=== PATIENT | male | born 1950 | race Caucasian/White ===

== ENCOUNTER 2020-07-06 08:09 | Inpatient (IN) | payer MEDICARE, SELFPAY ==
[2020-07-06] VITALS (16 sets, daily range): BP systolic 132–159; BP diastolic 74–103; PULSE 70–148; RESP 16–20; TEMP 35.9–36.6; O2SAT 97–100; BMI 19.1
--- NOTE | ~2020-07-06 | US_ITS ---
EXAMINATION: US venous doppler [facility] DATE: 07/07/2020 09:57 INDICATION: Shortness of breath. Elevated d-dimer. TECHNIQUE: Grayscale ultrasound images without and with compression and Doppler ultrasound images of the bilateral lower extremity veins were obtained. COMPARISON: None. FINDINGS: The visualized portions of right common femoral vein, profunda (deep) femoral vein, femoral vein, pop liteal vein, posterior tibial veins, peroneal veins, gastrocnemius vein and greater saphenous vein ou tflow are patent. The visualized portions of left common femoral vein, profunda femoral vein, femoral vein, popliteal v ein, posterior tibial veins, peroneal veins, gastrocnemius vein and greater saphenous vein outflow ar e patent. IMPRESSION: 1. No deep venous thrombosis in either lower limb. Reviewed, dictated and finalized at location B. HEALTH CLINICAL SUPERVISOR
--- NOTE | ~2020-07-06 | XR_ITS ---
EXAMINATION: XR chest 1V portable EXAM DATE: 07/06/2020 09:51 INDICATION: Shortness of breath. TECHNIQUE: Portable AP frontal chest x-ray was obtained. There is no prior study for comparison. FINDINGS: There is cardiomegaly. There is moderate chronic hyperinflation. No confluent consolidation , pneumothorax or pleural effusion suspected. There are mild bony degenerative changes. IMPRESSION: 1. Cardiomegaly. 2. Hyperinflation. Reviewed, dictated and finalized at location A. TRIC CUTTER OPERATOR
--- NOTE | ~2020-07-06 | CT_ITS ---
EXAMINATION: CTA chest PE protocol DATE: 07/06/2020 11:43 INDICATION: Shortness of breath. Elevated d-dimer. TECHNIQUE: Computed tomography (CT) pulmonary angiogram of the chest was performed with 100 mL Omnipa que-350 intravenous contrast. Additional 3D reconstructions utilizing coronal maximum intensity proje ction (MIP) were performed. Automated exposure control and iterative reconstruction technique were em ployed. The dose-length product was 202.30 mGy-cm. COMPARISON: None FINDINGS: Excellent contrast opacification of the pulmonary arteries. There is mild streak artifact from dense contrast in the superior vena cava and right atrium. Mild scattered respiratory motion artifact which does not significantly limit evaluation. No pulmonary embolism mild discoid atelectasis in the bilat eral lower lobes. There are multiple scattered small pulmonary nodules, the largest a 5 mm subpleural right lower lobe nodule along the dome of the right hemidiaphragm. No pneumonia, pulmonary edema or pleural effusion. Mild cardiomegaly. No pericardial effusion. Prominent aortic valve calcification. F usiform ascending thoracic aortic aneurysm measuring up to 4.5 cm in maximal diameter. There is enlar gement of the main pulmonary artery and left and right main pulmonary arteries consistent with pulmon huy arterial hypertension. No pathologically enlarged thoracic lymphadenopathy. 2.4 cm low-attenuatio n right renal cyst. Small diverticulum at the fundus of the stomach. Mild to moderate thoracic spondy losis. IMPRESSION: 1. No pulmonary embolism or other acute cardiopulmonary disease. 2. Cardiomegaly. 3. 4.5 cm fusiform ascending thoracic aortic aneurysm. 4. Enlargement of the central pulmonary arteries consistent with pulmonary arterial hypertension. 5. A few scattered small bilateral pulmonary nodules measuring up to 5 mm. If the patient is low risk for lung cancer, no follow-up is needed. If the patient is high risk (i.e., history of smoking or as bestos or significant radiation exposure), optional follow-up low-dose noncontrast chest CT could be considered at 12 months. Reviewed, dictated and finalized at location B. TENANCE DATA ANALYST IMPRESSION: 1. No pulmonary embolism or other acute cardiopulmonary disease. 2. Cardiomegaly. 3. 4.5 cm fusiform ascending thoracic aortic aneurysm. 4. Enlargement of the central pulmonary arteries consistent with pulmonary temitope rial hypertension. 5. A few scattered small bilateral pulmonary nodules measuring up to 5 mm. If t he patient is low risk for lung cancer, no follow-up is needed. If the patient is high risk (i.e., history of smoking or asbestos or significant radiation exp osure), optional follow-up low-dose noncontrast chest CT could be considered at 12 months.
--- NOTE | 2020-07-06 09:04 | ECG_ITS ---
Measurements Intervals [place] Rate: 120 P: GA: 0 QRS: 67 QRSD: 126 T: -48 QT: 346 QTc: 490 Interpretive Statements ATRIAL FIBRILLATION WITH RAPID VENTRICULAR RESPONSE RIGHT BUNDLE BRANCH BLOCK LEFT VENTRICULAR HYPERTROPHY WITH ST-T CHANGE BORDERLINE ST-T WAVE ABNORMALITY- INF/LAT LEADS BASELINE ARTIFACT- I, III, AVR, AVL, AVF, V4-V6 ABNORMAL ECG Electronically Signed On 07-06-2020 11:18:42 CHOPPER OPERATOR by Salvatore Esteban D.O.
--- NOTE | 2020-07-06 09:23 | ED.DIZZY ---
HPI - Dizziness General Chief Complaint: Dizziness Stated Complaint: high blood pressure, dizziniess Time Seen by Provider: 07/06/20 08:41 Source: patient Mode of arrival: ambulatory Limitations: no limitations History of Present Illness HPI Narrative: This is a 69 year old male who presents for evaluation of dizziness . He noticed 2 days ago he was lightheaded all the time. He also reports shortness of breath with exertion. He was noticed to be tachycardic on the case monitor. He denies history of atrial fibrillation or an arrhythmia, but he states 2 years ago it was recommended that he get a valve replacement. He is unsure of which valve. He has noticed his heart has been beating irregularly for 2 days. He denies leg swelling, chest pain, cough, headache, fever, chills or focal deficits. MD elicited complaint: lightheadedness Related Data Home Medications Medication Instructions Recorded Confirmed No Home Medications 07/06/20 07/06/20 Allergies Allergy/AdvReac Type Severity Reaction Status Date / Time No Known Allergies Allergy Unverified 11/06/18 12:05 Review of Systems Review of Systems: All systems reviewed & are unremarkable except as noted in HPI and below Constitutional: Constitutional: Denies chills and Denies fever(s) Cardiovascular: Cardiovascular: Denies chest pain and Reports palpitations Respiratory: Respiratory: Denies cough and Reports dyspnea Gastrointestinal: Gastrointestinal: Denies abdominal pain, Denies nausea and Denies vomiting Neurologic: Denies vertigo, Reports dizziness and Denies focal weakness PMFSH Past Medical History Medical History (Updated 07/06/20 @ 17:37 by Sommer Cade NP) Heart valve disease Retinal tear right eye Surgical History Surgical History (Updated 07/06/20 @ 17:35 by Sommer Cade NP) H/O cataract extraction left eye H/O hand surgery left hand H/O hernia repair Family History Family History Father Cancer Mother Brain aneurysm Social History Social History (Updated 07/06/20 @ 17:40 by Sommer Cade NP) Social History: his sister's lives with him. He is for a long time now he says. He is a lifelong nonsmoker. He does not use any alcohol , marijuana, or illicit drugs. the patient does not have a durable power patent prosecution attorney. He stated if he had have surgery he would be a full code and allow intubation. Otherwise the patient stated that he would allow CPR and would not want to be on a ventilator. 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 The patient has 2 children. 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 Chest: Chest palpation & inspection: normal inspection of the chest Resp: Effort & Inspection: normal respiratory effort and no retractions Auscultation: clear to auscultation bilaterally Cardio: Rate: tachycardic Rhythm: abnormal rhythm Heart sounds: Murmur heart sound present GI: GI Palp: Yes Soft to palpation, No Tenderness to palpation present (GI) and No Guarding due to palpation present (GI) Auscultation: normal bowel sounds Skin: General skin exam: normal color Rashes: no rashes Neuro: General: patient oriented x3 and moves all extremities Other: bilateral hand tremors Extrem: General: no pedal edema Psych: Mental Status: mental status grossly normal Affect: normal affect Course Consultations Consultation #1: I discussed case with Dr. Hennessy who accepts patient to hospitalist service. Agrees with management. No further questions Date: 07/06/20 Time: 10:01 Con
[2020-07-06 09:34] LABS: Basophils Percent Auto 0.5 % (0.2-1.2); Eosinophils Absolute Auto 0.1 K/mm3 (0-0.3); Eosinophils Percent Auto 0.9 % (0-4.4); Hemoglobin 13.5 g/dL (14.0-18.0); Immature Granulocyte Absolute 0.01 K/mm3 (0.00-0.031); Immature Granulocyte Percent A 0.2 % (0-0.5); Lymphocytes Absolute Auto 1.11 K/mm3 (0.9-3.2); Lymphocytes Percent Auto 19.5 % (18.3-44.2); Mean Corpuscular HGB Conc 33.8 g/dl (32-36); Mean Corpuscular Hemoglobin 30.1 pg (26-34); Mean Corpuscular Volume 89.1 fl (80-100); Mean Platelet Volume 9.4 fl (7.4-10.4); Monocytes Absolute Auto 0.5 K/mm3 (0.1-0.6); Monocytes Percent Auto 8.4 % (2.6-8.5); Neutrophils Percent Auto 70.5 % (45.5-73.1); Platelet Count Result 278 k/mm3 (150-375); Red Blood Count 4.49 M/mm3 (4.6-6.20); Red Cell Distribution Width 12.7 % (11.5-14.5); White Blood Count 5.7 K/mm3 (4.5-10.0)
[2020-07-06 09:47] LABS: Alanine Aminotransferase 15 U/L (4-50); Albumin Level 4.1 g/dL (3.5-5.1); Alkaline Phosphatase 62 U/L (38-126); Anion Gap 8 mmol/L (8-16); Aspartate Amino Transferase 32 U/L (17-59); Bilirubin,Total 0.5 mg/dL (0.2-1.3); Blood Urea Nitrogen 9 mg/dL (9-20); Calcium 9.3 mg/dL (8.4-10.2); Carbon Dioxide 27 mmol/L (22-30); Chloride 107 mmol/L (98-107); Estimated CRCL calculation 65 ml/min; Estimated Glomerular Filt Rate > 60; Glucose 128 mg/dL (75-110); Lactic Acid Reflex 2.1 mmol/L (0.7-2.1); Magnesium 1.8 mg/dL (1.6-2.3); Potassium 3.6 mmol/L (3.4-5.0); Sodium 142 mmol/L (137-145)
[2020-07-06 09:51] LABS: Prothrombin Time 13.7 Seconds (11.1-14.7)
[2020-07-06 09:52] LABS: Partial Thromboplastin Time 27.2 SECONDS (22.3-36.8)
[2020-07-06 09:59] LABS: NT Pro B Type Natriuretic Pept 2800 PG/ML (5-100)
[2020-07-06] MEDS: dilTIAZem HCl INJ 25 MG/5 ML VIAL 10 MG IV PUSH (10:20)
[2020-07-06] MEDS: ENOXAPARIN 80 MG/0.8 ML SYRINGE 70 MG SUB-Q (11:29)
[2020-07-06 12:25] LABS: Add Urine Microscopic? NO; Appearance Urine Clear (Clear); Bilirubin Urine Negative (Negative); Blood Urine Negative (Negative); Color Urine Straw (Yellow); Glucose Urine UA Negative (Negative); Ketones Urine Negative (Negative); Leukocyte Esterase Ur Negative LEU/UL (Negative); Nitrate Urine Negative (Negative); Protein Urine Negative (Negative); Specific Grav Ur 1.011 (1.001-1.035); Urobilinogen Urine Negative mg/dL (<2.0)
[2020-07-06 12:31] LABS: Reflex Lactic Acid Yes or No Add Lactic
[2020-07-06] MEDS: ASPIRIN 81 MG CHEWABLE TABLET 324 MG PO (13:05)
--- NOTE | 2020-07-06 13:55 | PC.NURSE ---
PT PLACED INTO BED 210. IMU PERSONNEL X4 MADE AWARE OF PT'S ARRIVAL AND THE NEED FOR HIM TO BE ADMITTED TO THEIR TELEMETRY FOR MONITORING.
--- NOTE | 2020-07-06 14:34 | ADMGEN ---
This patient, Alo Hutchins, was admitted to IMU Room 210-01. Patient/family oriented to hospital policies and general routines including ID bracelet, bed and alarms, visiting hours, pain management, procedures, bathroom and other care routines, personal items, smoking policy, room service/diet, and visiting hours. Information on how to activate the Rapid Response Team has been discussed. Patient/Family are encouraged to report perceived risks to care and to ask questions if they do not understand what they are told or what they should do.
--- NOTE | 2020-07-06 15:15 | PM.CNCAR ---
Assessment and Plan Assessment and plan (1) Thoracic aortic aneurysm: Code(s): I71.2 - Thoracic aortic aneurysm, without rupture Status: Acute Assessment and Plan: Patient is a 69-year-old white man with history of valvular heart disease who is seen in cardiac consultation for new onset atrial fibrillation with rapid ventricular response. -CTA of the chest demonstrated no evidence of pulmonary embolism but did demonstrate a 4.5 cm fusiform ascending thoracic aortic aneurysm as well as evidence of pulmonary arterial hypertension. -Obtain records from [facility] regarding prior chest CT scans and prior echocardiograms. -He needs outpatient CT surgery follow-up and serial imaging. -Monitor and improve blood pressure control. -Added metoprolol tartrate 25 mg b.i.d. to improve blood pressure and heart rate control in the setting of his thoracic aortic aneurysm. -obtain fasting lipid panel and need to keep LDL less than 70. Anticipate addition of statin. (2) Atrial fibrillation with rapid ventricular response: Code(s): I48.91 - Unspecified atrial fibrillation Status: Acute Assessment and Plan: - he had new onset atrial fibrillation with rapid ventricular response in the setting of valvular heart disease and CT evidence of pulmonary hypertension. - continue therapeutic Lovenox pending echo results regarding his valvular disease and left ventricular systolic function. - given his advanced age and congestive heart failure based on exertional symptoms with evidence of pulmonary hypertension on CT imaging, with possible previously undiagnosed hypertension, he would likely benefit from oral anticoagulation as an outpatient. - given elevated D-dimer, lower extremity venous Doppler ordered, pending. - CTA of the chest demonstrated no evidence of pulmonary embolism but did demonstrate a 4.5 cm fusiform ascending thoracic aortic aneurysm as well as evidence of pulmonary arterial hypertension. - he had normal TSH. - repleting magnesium and potassium as needed. - continue intravenous diltiazem infusion for rate control, currently 10 milligrams/hour. - added metoprolol tartrate 25 mg b.i.d. given his thoracic aortic aneurysm, need for improved rate control, and mildly elevated blood pressure on presentation. (3) NSTEMI (non-ST elevated myocardial infarction): Code(s): I21.4 - Non-ST elevation (NSTEMI) myocardial infarction Status: Acute Assessment and Plan: -In the setting of atrial fibrillation with rapid ventricular response, he had possible non ST elevation myocardial infarction with minimally elevated flat troponin I trend. -Troponin I was minimally elevated at 0.60, then 0.050, then 0.055, with a flat trend. - EKG without evidence of acute injury, and he reports atypical mild ongoing chest discomfort. - continue aspirin. - Continue therapeutic Lovenox for new onset atrial fibrillation and possible non ST elevation myocardial infarction. - obtain fasting lipid panel, and anticipate probable addition of statin given his thoracic aortic aneurysm. - obtain echo to evaluate cardiac structure and function, including valvular heart disease. - Pending stabilization of his heart rate, the patient would benefit from Lexiscan nuclear stress testing to evaluate for ischemia. (4) Heart valve disease: Code(s): I38 - Endocarditis, valve unspecified Status: Chronic Assessment and Plan: - Patient was told that he needed a valve replaced approximately 2 years ago at [facility], but he did not have it replaced since he was not short of breath at that time and his insurance was not compatible with [facility]. -obtain echo to evaluate cardiac structure and function, including underlying valvular disease. -Obtain records from [facility] regarding prior chest CT scans and prior echocardiograms, as well as prior cardiac consultations. History of Present Ill
[2020-07-06 15:36] LABS: Lactic Acid 1.2 mmol/L (0.7-2.1)
[2020-07-06 16:00] LABS: Troponin I 0.055 ng/mL (0.000-0.034)
--- NOTE | 2020-07-06 17:13 | PM.IMHP ---
H&P: HPI History of Present Illness Date/Time: 07/06/20 17:13 Chief Complaint: short of breath Narrative: Alo Hutchins is a 69 year old male who does not take any home medication. The patient stated that he did have a heart valve that needed to be replaced approximately 2 years ago. He stated that he was not short of breath so he decided that he needed to leave the heart valve alone. 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 However over the weekend when he was cutting wood he became more short of breath over the weekend when he was cutting wood. He cut wood on Monday and Monday and had to stop on Monday due to the shortness of breath. The patient rested on Monday. The patient has been feeling lightheaded Since the weekend. He denies any history of atrial fibrillation. He stated that he noticed that his blood pressure was high last night but he did not notice if his pulse rate was high. The patient stated that he saw vegetable picker at [facility] approximately 2 years ago but does not see a doctor on a regular basis. He said that he felt fine and did need to see a doctor. He denies any fever chills. No cough. No complaints of swelling. Cardiology has been consulted as the patient was in AFib with RVR. Patient's Jose Vasc score is only 1. Patient had a CT which was read as no pulmonary embolism or acute coronary pulmonary disease. Cardiomegaly. 4.5 cm fusiform ascending thoracic aortic aneurysm. A few scattered small bilateral pulmonary nodules measuring up to [address] is recommended and 12 months. Chest x-ray was read as cardiomegaly and hyperinflation. The patient was placed on a Cardizem drip and given up a aspirin. Troponin was 0.060, 0.050, and 0.055. BNP is 2800. TSH was normal. Magnesium 1.8. EKG was read as AFib with rapid ventricular response heart rate in the 120s. Patient is being admitted observation on the date of service of 07/06/2020 Review of Systems Review of Systems: All systems reviewed & are unremarkable except as noted in HPI and below Constitutional: Constitutional: Reports as per HPI and Reports no additional constitutional complaints Eyes: Eyes: Reports as per HPI and Reports no additional eye complaints ENT: Reports system reviewed and no additional complaints, except as documented and Reports Normal hearing present Cardiovascular: Cardiovascular: Reports no additional cardiovascular complaints Respiratory: Respiratory: Reports no additional respiratory complaints and Reports no additional respiratory complaints Gastrointestinal: Gastrointestinal: Reports as per HPI and Reports no additional gastrointestinal complaints Musculoskeletal: Musculoskeletal: Reports no additional musculoskeletal complaints Integumentary/Breasts: Skin/Breast: Reports system reviewed and no additional complaints, except as docu and Reports as per HPI Neurologic: Reports system reviewed and no additional complaints, except as documented, Reports as per HPI and Reports Normal hearing present Psychiatric: Psychiatric: Reports no additional psychiatric complaints and Reports as per HPI Endocrine: Endocrine: Reports no additional endocrine complaints Hematologic/Lymphatic: Hematologic/Lymphatic: Reports no additional hematologic/lymphatic complaints Allergic/Immunologic: Allergic/Immunologic: Reports no additional allergic/immunologic complaints [facility] Past Medical History Medical History (Updated 07/06/20 @ 17:37 by Sommer Cade NP) Heart valve disease Retinal tear right eye Surgical History Surgical History (Updated 07/06/20 @ 17:35 by Sommer Cade NP) H/O cataract extraction left eye H/O hand surgery left hand H/O hernia repair Family History Family History Father Cancer Mother Brain aneurysm Social History Social History (Updated 07/06/20 @ 17:40 by Sommer Cade NP) Social History: his sister's l
[2020-07-06] MEDS: ENOXAPARIN 60 MG/0.6 ML SYRINGE SUB-Q (19:55)
[2020-07-06] MEDS: POTASSIUM CHLORIDE 20 MEQ TABLET 40 MEQ PO (21:12)
[2020-07-06] MEDS: MAGNESIUM OXIDE 400 MG TABLET PO (21:12)
[2020-07-06] MEDS: METOPROLOL TARTRATE 25 MG TABLET PO (21:13)
[2020-07-07] VITALS (19 sets, daily range): BP systolic 114–141; BP diastolic 65–86; PULSE 60–102; RESP 16–20; TEMP 36.2–36.7; O2SAT 97–100
[2020-07-07 05:11] LABS: Basophils Percent Auto 0.6 % (0.2-1.2); Eosinophils Absolute Auto 0.1 K/mm3 (0-0.3); Hematocrit 39.8 % (42.0-52.0); Hemoglobin 13.2 g/dL (14.0-18.0); Immature Granulocyte Absolute 0.01 K/mm3 (0.00-0.031); Immature Granulocyte Percent A 0.2 % (0-0.5); Lymphocytes Percent Auto 29.5 % (18.3-44.2); Mean Corpuscular HGB Conc 33.2 g/dl (32-36); Mean Corpuscular Hemoglobin 30.4 pg (26-34); Mean Corpuscular Volume 91.7 fl (80-100); Mean Platelet Volume 8.9 fl (7.4-10.4); Monocytes Absolute Auto 0.5 K/mm3 (0.1-0.6); Monocytes Percent Auto 9.9 % (2.6-8.5); Neutrophils Absolute Auto 2.7 K/mm3 (1.3-6.7); Neutrophils Percent Auto 56.8 % (45.5-73.1); Platelet Count Result 284 k/mm3 (150-375); Red Blood Count 4.34 M/mm3 (4.6-6.20); Red Cell Distribution Width 12.7 % (11.5-14.5); White Blood Count 4.7 K/mm3 (4.5-10.0)
[2020-07-07 05:26] LABS: Alanine Aminotransferase 12 U/L (4-50); Albumin Level 3.7 g/dL (3.5-5.1); Alkaline Phosphatase 61 U/L (38-126); Anion Gap 3 mmol/L (8-16); Aspartate Amino Transferase 24 U/L (17-59); Bilirubin,Total 0.5 mg/dL (0.2-1.3); Blood Urea Nitrogen 12 mg/dL (9-20); Calcium 9.2 mg/dL (8.4-10.2); Carbon Dioxide 34 mmol/L (22-30); Chloride 106 mmol/L (98-107); Cholesterol 182 mg/dL (0-200); Estimated CRCL calculation 49 ml/min; Estimated Glomerular Filt Rate > 60; Glucose 105 mg/dL (75-110); HDL Direct 40 mg/dL; Potassium 4.5 mmol/L (3.4-5.0); Sodium 143 mmol/L (137-145); Triglycerides 75 mg/dL (<150)
[2020-07-07 05:36] LABS: LDL Cholesterol Direct 115 mg/dL
--- NOTE | 2020-07-07 06:00 | ECHO_ITS ---
Patient Info Name: Alo Hutchins Age: 69 years : 1950 Gender: Male Ht: 71 in Wt: 136 lbs BSA: 1.75 m2 HR: 72 bpm BP: 115 / 74 mmHg Technical Quality: Good Exam Date: 07/07/2020 10:48 AM Exam Location: [facility] Patient Status: Inpatient Admit Date: 07/07/2020 Staff Ordering Physician: Ruthie Singh MD Tassel Snipper: Lizzeth Fernandes RDCS Attending Provider: Beba Hennessy MD Referring Physician: Francisco LILLY; Exam Type: CA echo doppler color flow Study Info Indications I48.1 - Persistent atrial fibrillation Complete two-dimentional, color flow and Doppler transthoracic echocardiogram is performed with agitated saline and with contrast to opacify the left ventricle and to improve the delineation of the left ventricle endocardial borders. Summary 1. There is moderately increased left ventricular wall thickness. 2. Left ventricular systolic function is low normal, ejection fraction estimated at \R\50%. 3. The left ventricular diastolic function is indeterminate due to underlying Atrial fibrillation. 4. Right ventricular chamber dimension is mildly enlarged with low normal to mildly reduced RV systolic function. . 5. Aortic valve is heavily calcified. Appears likely trileaflet. There is moderate to severe aortic valve stenosis. Aortic valve peak velocity is 3.5, Mean gradient 35 mmHg, aortic valve area 0.8 cm2. 6. There is mild aortic valve regurgitation. 7. There is mild mitral valve regurgitation. 8. There is mild tricuspid valve regurgitation. 9. The aortic root size at the sinus of Valsalva is mildly dilated 4.4 cm. 10. Inferior vena cava is dilated with <50% collapse upon inspiration. 11. There is no pericardial effusion. Left Ventricle Left ventricular chamber dimension is normal. Left ventricular systolic function is low normal, ejection fraction estimated at \R\50%. There is moderately increased left ventricular wall thickness. Left ventricular septal wall motion is normal. The left ventricular diastolic function is indeterminate due to underlying Atrial fibrillation. Right Ventricle Right ventricular chamber dimension is mildly enlarged with low normal to mildly reduced RV systolic function. . Left Atria Left atrial chamber dimension is normal. Right Atria Right atrial chamber dimension is normal. Aortic Valve Aortic valve is heavily calcified. Appears likely trileaflet. There is moderate to severe aortic valve stenosis. Aortic valve peak velocity is 3.5, Mean gradient 35 mmHg, aortic valve area 0.8 cm2. There is mild aortic valve regurgitation. Pulmonic Valve The pulmonic valve is normal. There is no pulmonic valve stenosis. There is no pulmonic regurgitation. Mitral Valve The mitral valve has normal leaflets. There is no mitral valve stenosis. There is mild mitral valve regurgitation. Tricuspid Valve The tricuspid valve leaflets are normal. There is no significant tricuspid valve stenosis. There is mild tricuspid valve regurgitation. Mild pulmonary hypertension, estimated pulmonary arterial systolic pressure is 45 mmHg. Pericardium/Pleural The pericardium appears normal. There is no pericardial effusion. Inferior Vena Cava Inferior vena cava is dilated with <50% collapse upon inspiration. Aorta The aortic root size at the sinus of Valsalva is mildly dilated 4.4 cm. Left Ventricular Outflow Tract Name
[2020-07-07] MEDS: MAGNESIUM OXIDE 400 MG TABLET PO (08:15)
[2020-07-07] MEDS: METOPROLOL TARTRATE 25 MG TABLET PO ×2 (08:15→21:30)
[2020-07-07] MEDS: ASPIRIN 81 MG ENTERIC TABLET PO (08:15)
[2020-07-07] MEDS: ENOXAPARIN 60 MG/0.6 ML SYRINGE SUB-Q (08:16)
--- NOTE | 2020-07-07 10:16 | PM.PNCARD ---
Progress Note: A&P Assessment and Plan (1) Heart valve disease: Code(s): I38 - Endocarditis, valve unspecified Status: Chronic Assessment and Plan: - 69-year-old white man with history of aortic stenosis who is seen in cardiac consultation for new onset atrial fibrillation with rapid ventricular response. He was seen by Dr King at [facility] 2 years ago and had moderate to severe aortic stenosis at that time. Lost to follow up since Now he is symptomatic and developed new onset A fib, CHF and pulmonary HTN 2D echo has not been completed yet. Will follow He has mild trop elevation. No chest pain or ischemic changes on EKG. Likely type II [place] from increased demand from underlying A fib and heart failure. Regardless he will need LHC at some point prior to any potential intervention on aortic valve. Way may do during this hospitalization. He will eventually need likely SAVR (rather than TAVR) given ascending aortic aneurysm. . (2) Atrial fibrillation with rapid ventricular response: Code(s): I48.91 - Unspecified atrial fibrillation Status: Acute Assessment and Plan: -Rate better controlled Will D/C Cadizem drip Continue PO [id number] he had normal TSH. Repleting magnesium and potassium as needed CTA of the chest demonstrated no evidence of pulmonary embolism but did demonstrate a 4.5 cm fusiform ascending thoracic aortic aneurysm as well as evidence of pulmonary arterial hypertension. . (3) Thoracic aortic aneurysm: Code(s): I71.2 - Thoracic aortic aneurysm, without rupture Status: Acute Assessment and Plan: 4.5 cm fusiform ascending thoracic aortic aneurysm (4) NSTEMI (non-ST elevated myocardial infarction): Code(s): I21.4 - Non-ST elevation (NSTEMI) myocardial infarction Status: Acute Assessment and Plan: -Likely type II from increased demand Will follow 2D echo Will need LHC , possibly this admission for NSTMI and for potential intervention on aortic valve . Subjective Date/time seen: 07/07/20 10:16 He feels much better. SOB resolved. Denies chest pain. Review of Systems Review of Systems: All systems reviewed & are unremarkable except as noted in HPI and below Exam Narrative: Exam Narrative: Const: General: cooperative, healthy appearing, comfortable, no acute distress, well developed, alert, awake and Physically active Nutritional Appearance: average body habitus and well nourished Orientation/consciousness: oriented to person, oriented to place, oriented to time and patient oriented x3 Limitations: no limitations HENMT: Head: normal to inspection, No palpable skull fracture present, normocephalic and atraumatic Ears: hearing grossly normal bilaterally and external ears normal General nose exam: Normal external nose present, Normal nares present and No nasal polyps present Eyes: General: appearance normal, both eyes and all related structures Alignment and Position: alignment normal Periorbital: periorbital findings normal Eyelids: eyelids normal Conjunctivae: conjunctivae normal Sclera: sclerae normal Cornea: corneas normal Pupils: Equal, round and reactive pupils present and Pupil accommodation reflex normal EOM: EOMs intact bilaterally Neck: Neck: normal visual inspection, full ROM, no lymphadenopathy, trachea midline and supple Thyroid: thyroid normal Carotids: normal carotid upstroke Lymphatic: no lymphadenopathy noted Chest: Chest palpation & inspection: normal inspection of the chest Resp: Effort & Inspection: normal respiratory effort Auscultation: clear to auscultation bilaterally Percussion: percussion normal Cardio: Palpation: normal PMI Irregularly irregular rhythm: abnormal rhythm Heart sounds: S1 normal heart sound present and S2 normal heart sound present, with 2/6 intensity systolic murmur right upper sternal border and 2/6 intensity systolic murmur at the LLSB/apex, Peripheral pulses: Periphe
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
[2020-07-08] VITALS (24 sets, daily range): BP systolic 98–145; BP diastolic 56–89; PULSE 70–159; RESP 18–20; TEMP 35.6–36.6; O2SAT 93–99
--- NOTE | 2020-07-08 04:24 | PC.NURSE ---
patients heart rate increases into the 150's with activity.
[2020-07-08] MEDS: METOPROLOL TARTRATE 25 MG TABLET PO ×2 (07:46→20:54)
[2020-07-08] MEDS: ASPIRIN 81 MG ENTERIC TABLET PO (07:46)
[2020-07-08] MEDS: MAGNESIUM OXIDE 400 MG TABLET PO (07:46)
--- NOTE | 2020-07-08 09:20 | PM.IMPN ---
Progress Note: A&P Assessment and Plan (1) Atrial fibrillation with rapid ventricular response: Code(s): I48.91 - Unspecified atrial fibrillation Status: Acute Assessment and Plan: Patient presents with shortness of breath and found to have atrial fibrillation with RVR. TSH normal. Echo as mentioned below. [id number] score is 1 due to his age. He was started on Cardizem drip and oral Lopressor was added. Lovenox started. Able to come off the diltiazem and HR remained stable inititally but has increased overnight. BP soft so Digoxin added. Appreciated Cardiology input. (2) Elevated d-dimer: Code(s): R79.89 - Other specified abnormal findings of blood chemistry Status: Acute Assessment and Plan: CTA was negative. LE venous Dopplers negative as well. Currently on Lovenox (3) Aortic stenosis: Qualifiers: Cardiac valve disease etiology: etiology unspecified Qualified Code(s): I35.0 - Nonrheumatic aortic (valve) stenosis Code(s): I35.0 - Nonrheumatic aortic (valve) stenosis Status: Acute Assessment and Plan: Echo showing moderate-severe with MAYA 0.8cm2. EF 50% probably related to the valvular disease. Cardiology planning LHC later today or tomorrow in preparation for Aortic valve repair. Discussed with cardiology and stated that the aneurysm may be repaired at the same time. (4) Elevated troponin: Code(s): R77.8 - Other specified abnormalities of plasma proteins Status: Acute Assessment and Plan: Trop at 0.06 on admission and has trended down on repeat. EKG showing borderline ST-T wave changes. Echo showing no focal wall motion abnormalities. [place] Type II OR from stress response related to the AFib RVR. LHC planned. (5) Pulmonary nodule: Code(s): R91.1 - Solitary pulmonary nodule Status: Acute Assessment and Plan: CT scan showing a few scattered small bilateral pulmonary nodules measuring up to 5 mm. He is a nonsmoker and has no exposure to asbestos. Since patient is low risk for lung cancer, no follow-up is needed. (6) Thoracic aortic aneurysm: Code(s): I71.2 - Thoracic aortic aneurysm, without rupture Status: Acute Assessment and Plan: CT scan showing 4.5 cm fusiform ascending thoracic aortic aneurysm. Will need follow up but will defer to Cardiology since the patient will be following up for valve surgery. Subjective Date/time seen: 07/08/20 09:20 Interval history: Date of service 07/08 69-year-old male with known valvular disease here for shortness of breath and found to be in atrial fibrillation. Patient feels well. Slept well last night. Feels cold in the room. no CP, SOB. No palpitations. Exam Narrative: Exam Narrative: AF 96.7 98/67 115 20 99% ra Gen - NARD Chest - CTA bilaterally, nml RR CV -irregularly irregular with 2/6 systolic murmur RUSB. S1-S2. Tele showing persistent AFib with increasing HR overnight Abd - Soft, NT/ND, Positive BS Ext - No pedal edema Neuro - Alert and oriented. Nonfocal exam. Psych - Nml mood and affect Skin - Warm and dry Objective Data Vital Signs Vital Signs: Vital Signs - 24 hr 07/07/20 10:00 07/07/20 12:00 07/07/20 12:12 Temperature 98.1 F Pulse Rate 64 66 60 Respiratory Rate 18 Blood Pressure 115/65 Pulse Oximetry 99 07/07/20 16:00 07/07/20 16:55 07/07/20 18:00 Temperature 97.4 F L Pulse Rate 79 73 66 Respiratory Rate 20 Blood Pressure 114/81 Pulse Oximetry 100 07/07/20 19:17 07/07/20 20:00 07/07/20 21:30 Temperature 97.2 F L Pulse Rate 71 72 102 H Respiratory Rate 20 20 Blood Pressure 121/83 Pulse Oximetry 100 100 07/07/20 22:00 07/07/20 23:31 07/08/20 00:00 Temperature 97.7 F Pulse Rate 82 88 88 Respiratory Rate 20 20 Blood Pressure 141/86 H Pulse Oximetry 97 97 07/08/20 02:00 07/08/20 04:00 07/08/20 06:00 Temperature 97.8 F Pulse Ra
[2020-07-08] MEDS: DIGOXIN INJ 250 MCG/ML 2 ML AMP (*BKC) IV PUSH (09:36)
--- NOTE | 2020-07-08 09:50 | PM.PNCARD ---
Progress Note: A&P Assessment and Plan (1) Aortic stenosis: Code(s): I35.0 - Nonrheumatic aortic (valve) stenosis Status: Acute Assessment and Plan: 69-year-old white man with history of aortic stenosis who is seen in cardiac consultation for new onset atrial fibrillation with rapid ventricular response. He was seen by Dr King at [facility] 2 years ago and had moderate to severe aortic stenosis at that time. Lost to follow up since. His echo now shows heavily calcified aortic valve with likely severe aortic stenosis valve area of 0.8 cms. His gradient is 35 mmHg consistent with moderate to severe stenosis but that is likely in the setting of low flow (EF ~ 45-50%) Now he is symptomatic and developed new onset A fib, CHF and pulmonary HTN Will plan [facility] for NSTMI with mild trop elevation and for potential intervention on aortic valve. Will check aortic valve gradient at time of cath. He will eventually need likely SAVR (rather than TAVR) given ascending aortic aneurysm. Coronary anatomy pending C will also be needed for this decision for SAVR vs TAVR (2) Atrial fibrillation with rapid ventricular response: Code(s): I48.91 - Unspecified atrial fibrillation Status: Acute Assessment and Plan: -Rate ~ 110-130 COntinue Metoprolol. [employer] BP room for up titration of BB Will start Digoxin CTA of the chest demonstrated no evidence of pulmonary embolism but did demonstrate a 4.5 cm fusiform ascending thoracic aortic aneurysm as well as evidence of pulmonary arterial hypertension. . (3) Thoracic aortic aneurysm: Code(s): I71.2 - Thoracic aortic aneurysm, without rupture Status: Acute Assessment and Plan: 4.5 cm fusiform ascending thoracic aortic aneurysm (4) NSTEMI (non-ST elevated myocardial infarction): Code(s): I21.4 - Non-ST elevation (NSTEMI) myocardial infarction Status: Acute Assessment and Plan: -Likely type II from increased demand EF ~ 45-50%. Plan for [facility] as above (either later today or tomorrow) . Subjective Date/time seen: 07/08/20 09:50 He feels better overall. Last night his heart rate went up to 130s. It is around 110s this am. Review of Systems Review of Systems: All systems reviewed & are unremarkable except as noted in HPI and below Exam Narrative: Exam Narrative: Const: General: cooperative, healthy appearing, comfortable, no acute distress, well developed, alert, awake and Physically active Nutritional Appearance: average body habitus and well nourished Orientation/consciousness: oriented to person, oriented to place, oriented to time and patient oriented x3 Limitations: no limitations HENMT: Head: normal to inspection, No palpable skull fracture present, normocephalic and atraumatic Ears: hearing grossly normal bilaterally and external ears normal General nose exam: Normal external nose present, Normal nares present and No nasal polyps present Eyes: General: appearance normal, both eyes and all related structures Alignment and Position: alignment normal Periorbital: periorbital findings normal Eyelids: eyelids normal Conjunctivae: conjunctivae normal Sclera: sclerae normal Cornea: corneas normal Pupils: Equal, round and reactive pupils present and Pupil accommodation reflex normal EOM: EOMs intact bilaterally Neck: Neck: normal visual inspection, full ROM, no lymphadenopathy, trachea midline and supple Thyroid: thyroid normal Carotids: normal carotid upstroke Lymphatic: no lymphadenopathy noted Chest: Chest palpation & inspection: normal inspection of the chest Resp: Effort & Inspection: normal respiratory effort Auscultation: clear to auscultation bilaterally Percussion: percussion normal Cardio: Palpation: normal PMI Irregularly irregular rhythm: abnormal rhythm Heart sounds: S1 normal heart sound present and S2 normal heart sound present, with 2/6 intensity systolic murmur right upper sternal border and 2/6
--- NOTE | 2020-07-08 10:45 | P.CDI_ITS ---
CDI Query Clarification Request 1) -Heart valve disease- endocarditis has been documented. - Echo showing moderate-severe with MAYA 0.8cm2. EF 50% probably related to the valvular disease has been documented. Please clarify diagnosis: * Moderate-severe aortic stenosis * Moderate-severe aortic stenosis with endocarditis * Unable to determine 2) - Now he is symptomatic and developed new onset A fib, CHF and pulmonary HTN documented by cardiology - No mention of CHF by hospitalists Please clarify if CHF was ruled in or ruled out. If ruled in, please also further clarify type and acuity of CHF. <Tanisha Wolf RN - Last Filed: 07/08/20 11:01>
[2020-07-08] MEDS: DIGOXIN INJ 250 MCG/ML 2 ML AMP (*BKC) 125 MCG IV PUSH (15:35)
[2020-07-09] VITALS (30 sets, daily range): BP systolic 110–135; BP diastolic 72–95; PULSE 67–157; RESP 10–21; TEMP 36.4–36.8; O2SAT 95–99
--- NOTE | 2020-07-09 04:57 | PC.NURSE ---
patients heart rate was maintaining for about 15 to 20 min in the 150 to160's. patient was up walking around. dr joshi is aware. patient suddenly went back down into the 90 to 120[address] joshi is also aware of this. patient is back to resting with lower heart rate. will continue to monitor.
[2020-07-09 06:00] LABS: Anion Gap 5 mmol/L (8-16); Blood Urea Nitrogen 25 mg/dL (9-20); Calcium 8.9 mg/dL (8.4-10.2); Carbon Dioxide 31 mmol/L (22-30); Chloride 106 mmol/L (98-107); Estimated CRCL calculation 42 ml/min; Estimated Glomerular Filt Rate 54; Glucose 103 mg/dL (75-110); Sodium 142 mmol/L (137-145)
[2020-07-09] MEDS: METOPROLOL TARTRATE 25 MG TABLET PO ×2 (07:59→20:41)
[2020-07-09] MEDS: MAGNESIUM OXIDE 400 MG TABLET PO (08:00)
[2020-07-09] MEDS: ASPIRIN 81 MG ENTERIC TABLET PO (08:00)
[2020-07-09] MEDS: DIGOXIN TAB 125 MCG TABLET PO (08:03)
--- NOTE | 2020-07-09 13:22 | PM.IMPN ---
Progress Note: A&P Assessment and Plan (1) Atrial fibrillation with rapid ventricular response: Code(s): I48.91 - Unspecified atrial fibrillation Status: Acute Assessment and Plan: Patient presents with shortness of breath and found to have atrial fibrillation with RVR. TSH normal. Echo as mentioned below. [id number] score is 1 due to his age. He was started on Cardizem drip and oral Lopressor was added. Lovenox started. Able to come off the diltiazem and HR remained stable initially but then increased so Digoxin added. Metoprolol dose advanced today. Appreciated Cardiology input. Follow on tele. Coding query: No CHF. CXR clear. No lasix given. Not requiring O2. (2) Aortic stenosis: Qualifiers: Cardiac valve disease etiology: etiology unspecified Qualified Code(s): I35.0 - Nonrheumatic aortic (valve) stenosis Code(s): I35.0 - Nonrheumatic aortic (valve) stenosis Status: Acute Assessment and Plan: Echo showing moderate-severe with MAYA 0.8cm2. EF 50% probably related to the valvular disease. Cardiology planning LHC later today in preparation for Aortic valve repair. Discussed with cardiology and stated that the aneurysm may be repaired at the same time. LHC showing clean coronaries and that the is moderate to severe so no need for surgical repair acutely. Plan to hold Lovenox/Heparin for now. Resume anticoagulation in the morning. Discussed with [employer] (3) Elevated troponin: Code(s): R77.8 - Other specified abnormalities of plasma proteins Status: Acute Assessment and Plan: Trop at 0.06 on admission and has trended down on repeat. EKG showing borderline ST-T wave changes. Echo showing no focal wall motion abnormalities. [place] Type II [place] from stress response related to the AFib RVR. LHC planned. (4) Pulmonary nodule: Code(s): R91.1 - Solitary pulmonary nodule Status: Acute Assessment and Plan: CT scan showing a few scattered small bilateral pulmonary nodules measuring up to 5 mm. He is a nonsmoker and has no exposure to asbestos. Since patient is low risk for lung cancer, no follow-up is needed. (5) Thoracic aortic aneurysm: Code(s): I71.2 - Thoracic aortic aneurysm, without rupture Status: Acute Assessment and Plan: CT scan showing 4.5 cm fusiform ascending thoracic aortic aneurysm. Will need follow up but will defer to Cardiology since the patient will be following up for valve surgery. (6) Elevated d-dimer: Code(s): R79.89 - Other specified abnormal findings of blood chemistry Status: Acute Assessment and Plan: CTA was negative. LE venous Dopplers negative as well. Subjective Date/time seen: 07/09/20 13:22 Interval history: Date of service 07/09 69-year-old male with known valvular disease here for shortness of breath and found to be in atrial fibrillation. No n/v. Slept well. No CP or SOB. No palpitations. No problems overnight Exam Narrative: Exam Narrative: AF 97.6 128/78 105 12 99% ra Gen - NARD Chest - CTA bilaterally, nml RR CV -irregularly irregular and tachycardic. Tele showing persistent AFib with increasing HR Abd - Soft, NT/ND, Positive BS Ext - No pedal edema Neuro - Alert and oriented. Nonfocal exam. Psych - Nml mood and affect Skin - Warm and dry Objective Data Vital Signs Vital Signs: Vital Signs - 24 hr 07/08/20 14:00 07/08/20 15:35 07/08/20 16:00 Temperature Pulse Rate 107 H 115 H 95 Respiratory Rate Blood Pressure Pulse Oximetry 07/08/20 16:36 07/08/20 18:00 07/08/20 19:33 Temperature 96.0 F L 97.7 F Pulse Rate 70 104 H 89 Respiratory Rate 18 20 Blood Pressure 118/56 L 128/77 Pulse Oximetry 99 98 07/08/20 20:00 07/08/20 20:44 07/08/20 20:54 Temperature Pulse Rate 87 87 Respiratory Rate 20 Blood Pressure Pulse Oximetry 98 93 07/08/20 22:00 07/08/20 2
--- NOTE | 2020-07-09 13:55 | WPDMODSED ---
Moderate Sedation Note-Pt Data Patient Data Allergies Allergy/AdvReac Type Severity Reaction Status Date / Time No Known Allergies Allergy Unverified 11/06/18 12:05 Home Medications Medication Instructions Recorded Confirmed Type No Home Medications 07/06/20 07/06/20 History Current Medications: Active Medications Aspirin (Aspirin 81 Mg Enteric Tablet) 81 mg PO [facility] Last Admin: 07/09/20 08:00 Dose: 81 mg Documented by: Digoxin (Digoxin Tab 125 Mcg Tablet) 125 mcg PO [facility] Last Admin: 07/09/20 08:03 Dose: 125 mcg Documented by: Magnesium Oxide (Magnesium Oxide 400 Mg Tablet) 400 mg PO [facility] Last Admin: 07/09/20 08:00 Dose: 400 mg Documented by: Metoprolol Tartrate (Metoprolol Tartrate 25 Mg Tablet) 25 mg PO Q12HR [facility] Last Admin: 07/09/20 07:59 Dose: 25 mg Documented by: Ondansetron HCl (Ondansetron Inj 4 Mg/2 Ml Vial) 4 mg IV PUSH Q4H PRN PRN Reason: Nausea Sedation/Anesthesia: No previous sedation/anesthesia problems (including family history). [facility] Past Medical History Medical History Heart valve disease Retinal tear right eye Surgical History Surgical History H/O cataract extraction left eye H/O hand surgery left hand H/O hernia repair Family History Family History Father Cancer Mother Brain aneurysm Social History Social History (Updated 07/06/20 @ 17:40 by Sommer Cade NP) Social History: his sister's lives with him. He is for a long time now he says. He is a lifelong nonsmoker. He does not use any alcohol , marijuana, or illicit drugs. the patient does not have a durable power united states attorney. He stated if he had have surgery he would be a full code and allow intubation. Otherwise the patient stated that he would allow CPR and would not want to be on a ventilator. 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 The patient has 2 children. Smoking status: Never smoker Alcohol intake: never Substance use: never Gender identity (if verbalized by the patient): Male Spiritual care concerns: No Mod Sed Physical Exam Physical Exam Pre Procedural Exam: Normal: Appearance, Eyes, Ears, Nose, Neck, Throat, Airway, Lungs, Heart Size, Heart Rate, Neuro Exam, Abdomen, Liver, Kidneys, Spleen, Breasts, Genitalia, Extremities and Skin and Variation: Heart Rhythm ( irregular) Hours since solid foods: 6 Hours since liquid intake: 6 Internal Medicine - PN: Obj Da Vital Signs Vital Signs: Vital Signs - 24 hr 07/08/20 14:00 07/08/20 15:35 07/08/20 16:00 Temperature Pulse Rate 107 H 115 H 95 Respiratory Rate Blood Pressure Pulse Oximetry 07/08/20 16:36 07/08/20 18:00 07/08/20 19:33 Temperature 35.6 C L 36.5 C Pulse Rate 70 104 H 89 Respiratory Rate 18 20 Blood Pressure 118/56 L 128/77 Pulse Oximetry 99 98 07/08/20 20:00 07/08/20 20:44 07/08/20 20:54 Temperature Pulse Rate 87 87 Respiratory Rate 20 Blood Pressure Pulse Oximetry 98 93 07/08/20 22:00 07/08/20 23:51 07/09/20 00:00 Temperature 36.6 C Pulse Rate 92 95 81 Respiratory Rate 18 18 Blood Pressure 145/89 H Pulse Oximetry 97 97 07/09/20 02:00 07/09/20 04:00 07/09/20 04:51 Temperature 36.6 C Pulse Rate 102 H 106 H 157 H Respiratory Rate 18 Blood Pressure 132/76 Pulse Oximetry 99 07/09/20 06:00 07/09/20 07:55 07/09/20 07:59 Temperature 36.8 C Pulse Rate 112 H 120 H 120 H Respiratory Rate 20 Blood Pressure 117/72 Pulse Oximetry 07/09/20 08:00 07/09/20 08:03 07/09/20 10:00 Temperature Pulse Rate 113 H 120 H 98 Respiratory Rate Blood Pressure Pulse Oximetry 99 07/09/20 10:53 07/09/20 12:00 Temperature 36.4 C Pulse Rate 105 H Respiratory Rate 12 Blood Pressure 128/78 Pulse Oximetry 97 99 Inta
--- NOTE | 2020-07-09 15:30 | PM.PNCARD ---
Progress Note: A&P Assessment and Plan (1) Aortic stenosis: Qualifiers: Cardiac valve disease etiology: etiology unspecified Qualified Code(s): I35.0 - Nonrheumatic aortic (valve) stenosis Code(s): I35.0 - Nonrheumatic aortic (valve) stenosis Status: Acute Assessment and Plan: 69-year-old white man with history of aortic stenosis who is seen in cardiac consultation for new onset atrial fibrillation with rapid ventricular response. catheterization today showed no significant coronary disease and showed moderate severe aortic valve stenosis, will continue medical treatment for now and rate control for his AFib (2) Atrial fibrillation with rapid ventricular response: Code(s): I48.91 - Unspecified atrial fibrillation Status: Acute Assessment and Plan: -Rate ~ 110-130 will increase metoprolol to 37.5 b.i.d., and continue with digoxin. For anticoagulation need started on possibly Coumadin as he has what appears to be valvular AFib, however because it is only the aortic valve stenosis will have to re-evaluate this subject and consider starting him on Xarelto as of tomorrow . (3) Thoracic aortic aneurysm: Code(s): I71.2 - Thoracic aortic aneurysm, without rupture Status: Acute Assessment and Plan: 4.5 cm fusiform ascending thoracic aortic aneurysm (4) NSTEMI (non-ST elevated myocardial infarction): Code(s): I21.4 - Non-ST elevation (NSTEMI) myocardial infarction Status: Acute Assessment and Plan: -Likely type II from increased demand EF ~ 45-50%. Plan for [facility] as above (either later today or tomorrow) . Subjective Date/time seen: 07/09/20 15:30 feels better today, had cardiac catheterization revealing no significant coronary disease and moderate to severe aortic valve stenosis, he still is in AFib but his rate is not very well controlled yet Exam Narrative: Exam Narrative: Const: General: cooperative, healthy appearing, comfortable, no acute distress, well developed, alert, awake and Physically active Nutritional Appearance: average body habitus and well nourished Orientation/consciousness: oriented to person, oriented to place, oriented to time and patient oriented x3 Limitations: no limitations HENMT: Head: normal to inspection, No palpable skull fracture present, normocephalic and atraumatic Ears: hearing grossly normal bilaterally and external ears normal General nose exam: Normal external nose present, Normal nares present and No nasal polyps present Eyes: General: appearance normal, both eyes and all related structures Alignment and Position: alignment normal Periorbital: periorbital findings normal Eyelids: eyelids normal Conjunctivae: conjunctivae normal Sclera: sclerae normal Cornea: corneas normal Pupils: Equal, round and reactive pupils present and Pupil accommodation reflex normal EOM: EOMs intact bilaterally Neck: Neck: normal visual inspection, full ROM, no lymphadenopathy, trachea midline and supple Thyroid: thyroid normal Carotids: normal carotid upstroke Lymphatic: no lymphadenopathy noted Chest: Chest palpation & inspection: normal inspection of the chest Resp: Effort & Inspection: normal respiratory effort Auscultation: clear to auscultation bilaterally Percussion: percussion normal Cardio: Palpation: normal PMI Irregularly irregular rhythm: abnormal rhythm Heart sounds: S1 normal heart sound present and S2 normal heart sound present, with 2/6 intensity systolic murmur right upper sternal border and 2/6 intensity systolic murmur at the LLSB/apex, Peripheral pulses: Peripheral pulses 2+ throughout GI: Inspection: normal to inspection Percussion: Yes normal to percussion Auscultation: normal bowel sounds Rectal Exam: deferred Skin: General skin exam: normal color Lesions: no lesions Rashes: no rashes Trauma: no lacerations or abrasions Wounds: no wounds Hair: normal Nails: normal Neuro: Gen
--- NOTE | 2020-07-09 17:17 | PC.NURSE ---
Patient returned from the laboratory chief. Foot pulse is present. Groin site soft, no bruit present. Patient on bed rest until 20:00
[2020-07-09] MEDS: METOPROLOL TARTRATE 12.5 MG TABLET PO (20:42)
[2020-07-10] VITALS (11 sets, daily range): BP systolic 102–133; BP diastolic 72–92; PULSE 60–122; RESP 16–18; TEMP 36.1–36.6; O2SAT 99–100
[2020-07-10 05:18] LABS: Anion Gap 2 mmol/L (8-16); Blood Urea Nitrogen 23 mg/dL (9-20); Calcium 8.5 mg/dL (8.4-10.2); Carbon Dioxide 31 mmol/L (22-30); Chloride 106 mmol/L (98-107); Estimated CRCL calculation 50 ml/min; Estimated Glomerular Filt Rate > 60; Glucose 97 mg/dL (75-110); Potassium 4.1 mmol/L (3.4-5.0); Sodium 139 mmol/L (137-145)
--- NOTE | 2020-07-10 08:34 | PM.PNCARD ---
Progress Note: A&P Assessment and Plan (1) Aortic stenosis: Qualifiers: Cardiac valve disease etiology: etiology unspecified Qualified Code(s): I35.0 - Nonrheumatic aortic (valve) stenosis Code(s): I35.0 - Nonrheumatic aortic (valve) stenosis Status: Acute Assessment and Plan: 69-year-old white man with history of aortic stenosis who is seen in cardiac consultation for new onset atrial fibrillation with rapid ventricular response. Echo now shows heavily calcified aortic valve with likely severe aortic stenosis valve area of 0.8 cms. His gradient is 35 mmHg consistent with moderate to severe stenosis but that is likely in the setting of low flow (EF ~ 45-50%) Gradient checked with [facility] yesterday also consistent with moderate to severe aortic stenosis. He has no CAD He will eventually need likely SAVR (rather than TAVR) given ascending aortic aneurysm that can be arranged in outpatient settings For now, we still need better rate control for A fib. Will increase Metoprolol to 50 mg BID. Continue Digoxin. Will start Xarelto for stroke prevention (2) Atrial fibrillation with rapid ventricular response: Code(s): I48.91 - Unspecified atrial fibrillation Status: Acute Assessment and Plan: -Rate 80-90 at rest up to 110-130 will increase metoprolol to 50 b.i.d., and continue with digoxin. Will add Xarelto 20 mg daily . (3) Thoracic aortic aneurysm: Code(s): I71.2 - Thoracic aortic aneurysm, without rupture Status: Acute Assessment and Plan: 4.5 cm fusiform ascending thoracic aortic aneurysm (4) NSTEMI (non-ST elevated myocardial infarction): Code(s): I21.4 - Non-ST elevation (NSTEMI) myocardial infarction Status: Acute Assessment and Plan: -Likely type II from increased demand EF ~ 45-50%. [facility] with no significant CAD . Subjective Date/time seen: 07/10/20 08:34 He underwent LHC yesterday that he tolerated well. He feels well this am. HR was ~ 80s overnight while asleep. Now up to 130s this am while awake. He denies chest pain or dyspnea. Review of Systems Review of Systems: All systems reviewed & are unremarkable except as noted in HPI and below Exam Narrative: Exam Narrative: Const: General: cooperative, healthy appearing, comfortable, no acute distress, well developed, alert, awake and Physically active Nutritional Appearance: average body habitus and well nourished Orientation/consciousness: oriented to person, oriented to place, oriented to time and patient oriented x3 Limitations: no limitations HENMT: Head: normal to inspection, No palpable skull fracture present, normocephalic and atraumatic Ears: hearing grossly normal bilaterally and external ears normal General nose exam: Normal external nose present, Normal nares present and No nasal polyps present Eyes: General: appearance normal, both eyes and all related structures Alignment and Position: alignment normal Periorbital: periorbital findings normal Eyelids: eyelids normal Conjunctivae: conjunctivae normal Sclera: sclerae normal Cornea: corneas normal Pupils: Equal, round and reactive pupils present and Pupil accommodation reflex normal EOM: EOMs intact bilaterally Neck: Neck: normal visual inspection, full ROM, no lymphadenopathy, trachea midline and supple Thyroid: thyroid normal Carotids: normal carotid upstroke Lymphatic: no lymphadenopathy noted Chest: Chest palpation & inspection: normal inspection of the chest Resp: Effort & Inspection: normal respiratory effort Auscultation: clear to auscultation bilaterally Percussion: percussion normal Cardio: Palpation: normal PMI Irregularly irregular rhythm: abnormal rhythm Heart sounds: S1 normal heart sound present and S2 normal heart sound present, with 2/6 intensity systolic murmur right upper sternal border and 2/6 intensity systolic murmur at the LLSB/apex, Peripheral pulses: Peripheral pulses 2+ throu
[2020-07-10] MEDS: DIGOXIN TAB 125 MCG TABLET PO (10:01)
[2020-07-10] MEDS: MAGNESIUM OXIDE 400 MG TABLET PO (10:01)
[2020-07-10] MEDS: ASPIRIN 81 MG ENTERIC TABLET PO (10:01)
[2020-07-10] MEDS: METOPROLOL TARTRATE 50 MG TAB PO (10:46)
--- NOTE | 2020-07-10 14:33 | P.PCNCC_ITS ---
Cardiac Cath Procedure Note Date of procedure:: 07/09/20 Performing physician:: Tito Fraser MD Procedure: 1. Left heart catheterization, selective coronary angiogram. 2. Left ventricular pressure measurement 3. Conscious sedation. Heddler Tier: Dr. Tito Fraser Complications: None. Sedation: Conscious sedation, local anesthesia, using 1 mg of Versed said, 25 mcg of fentanyl, and using 1% lidocaine for local anesthesia. History: 69 years old gentleman with history of dyslipidemia hypertension and known aortic valve stenosis admitted to the hospital because of congestive heart failure noted to have atrial fibrillation rapid ventricular response and his echo showed possibly severe aortic valve stenosis along with the left ventricular systolic dysfunction, was brought to the blood bank laboratory technologist for elective cardiac catheterization for evaluation of his current status of coronary artery disease Technique: After informed consent was obtained from patient, was brought to the blood bank laboratory technologist, put in the blood bank laboratory technologist table, prepped and draped in usual sterile fashion. Five [place] sheath was inserted into the right common femoral artery, through the sheath 5 [place] JL4 catheter inserted, advanced to the left coronary artery, left coronary artery angiogram was obtained. The catheter was exchanged over guidewire into a 5 [place] JR4 catheter, advanced to the right coronary artery, right coronary artery angiogram was obtained. The catheter then was exchanged over guidewire into this 5 [place] pigtail catheter, advanced to left ventricle, left ventricular pressure was obtained. The catheter then was pulled, the sheath was pulled applying manual pressure for arterial hemostasis. Patient tolerated the procedure no complication, taken from the blood bank laboratory technologist to his room in stable condition stable vital signs. Hemodynamics: aortic pressure 104/60 . LV pressure 131/09 with LVEDP of 21 mmHg with peak instantaneous pressure gradient of 27-30 mmHg consistent with moderate to severe aortic valve stenosis Angiographic findings: Left main: Medium size artery no significant disease or stenosis. Lad medium size artery showed no significant coronary disease Left circumflex artery, medium size artery, no significant disease or stenosis. RCA: Dominant vessel, showed no significant coronary artery disease LV: was not done due to underlying renal dysfunction creatinine of 1.3 Summary: no significant coronary artery disease, moderate severe aortic valve stenosis significant calcification of the aortic valve Recommendation: Maximum medical treatment. Risk factor modification, consider closer monitoring, and consider TAVR when he has more of severe aortic valve stenosis. In the meanwhile continue treatment for atrial fibrillation with rate control which may be will improve his left ventricular systolic function
--- NOTE | 2020-07-10 16:47 | PM.DS ---
DS: Admitting Diagnosis Admitting Diagnosis Admitting Diagnosis: Shortness of breath DS: Discharge Diagnosis Discharge Diagnosis (1) Atrial fibrillation with rapid ventricular response: Code(s): I48.91 - Unspecified atrial fibrillation Status: Acute Assessment and Plan: Patient presents with shortness of breath and found to have atrial fibrillation with RVR. TSH normal. Echo as mentioned below. [id number] score is 1 due to his age. He was started on Cardizem drip and oral Lopressor was added. Lovenox started. Able to come off the diltiazem and HR remained stable initially but then HR increased so Digoxin added and Lopressor advanced. Xarelto added. Appreciate Cardiology input. (2) Aortic stenosis: Qualifiers: Cardiac valve disease etiology: etiology unspecified Qualified Code(s): I35.0 - Nonrheumatic aortic (valve) stenosis Code(s): I35.0 - Nonrheumatic aortic (valve) stenosis Status: Acute Assessment and Plan: Echo showing moderate-severe with MAYA 0.8cm2. EF 50% probably related to the valvular disease. LHC performed 3/4 showing no significant disease or stenosis in the left main, lad, left circumflex and RCA. The is moderate to severe. Plan for patient to follow with cardiology. (3) Elevated troponin: Code(s): R77.8 - Other specified abnormalities of plasma proteins Status: Acute Assessment and Plan: Trop at 0.06 on admission and has trended down on repeat. EKG showing borderline ST-T wave changes. Echo showing no focal wall motion abnormalities. [place] Type II TX from stress response related to the AFib RVR. LHC as above. (4) Pulmonary nodule: Code(s): R91.1 - Solitary pulmonary nodule Status: Acute Assessment and Plan: CT scan showing a few scattered small bilateral pulmonary nodules measuring up to 5 mm. He is a nonsmoker and has no exposure to asbestos. Since patient is low risk for lung cancer, no follow-up is needed. (5) Thoracic aortic aneurysm: Code(s): I71.2 - Thoracic aortic aneurysm, without rupture Status: Acute Assessment and Plan: CT scan showing 4.5 cm fusiform ascending thoracic aortic aneurysm. Will need follow up but will defer to Cardiology since the patient will be following up for his aortic valve disease. (6) Elevated d-dimer: Code(s): R79.89 - Other specified abnormal findings of blood chemistry Status: Acute Assessment and Plan: CTA was negative. LE venous Dopplers negative as well. DS: Summary Hospital Course Reason for hospitalization: 69-year-old male with known valvular disease presents with complaints of shortness of breath and found to have atrial fibrillation RVR. Please see H&P for details. Hospital Course: Patient presented the emergency room with shortness of breath. EKG showed atrial fibrillation with RVR. TSH was normal. CTA was negative for PE. He did have a 4.5 cm thoracic aortic aneurysm. Troponin was mildly elevated on admission but trended downward from there. He was admitted and placed on diltiazem drip. Lopressor was added. Lovenox was started. He was seen by cardiology. Echocardiogram showed moderate to severe aortic stenosis. Left heart catheterization showed clean coronaries. The aortic stenosis was verified by heart catheterization. Patient was transitioned to Xarelto. Patient will follow with cardiology for the aortic stenosis and aneurysm. Patient feels well. He overall did well as able discharged home on 07/10/2020. Status at Discharge Cognitive/behavioral status at discharge: stable Time Spent with Patient Time attestation: Total time spent providing and/or coordinating discharge services: 38 minutes Time spent: Greater than 30 minutes Exam Narrative: Exam Narrative: AF 98.0 120/81 106 18 99% ra Gen - NARD Chest - CTA bilaterally, nml RR CV -irregularly irregular and tachycardic. Tel
[2020-07-10] MEDS: RIVAROXABAN 20 MG TABLET PO (18:25)
== END 2020-07-10 18:37 | disposition home or self-care (01) | DRG 282 ==
LOC: ANHED 12:18 → ANHIMU 13:12
PROVIDERS: Internal Medicine Cardiovascular Disease; Nurse Practitioner; Specialist; Admitting Provider Family Medicine; Emergency Provider General Practice; Visit Provider Internal Medicine
PROC: 4A023N7 Measurement of Cardiac Sampling and Pressure, Left Heart, Percutaneous Approach (ICD-10-PCS; CPT 93452; principal; 2020-07-09 14:30)
DX: I48.91 Unspecified atrial fibrillation (principal); I21.A1 Myocardial infarction type 2; I35.0 Nonrheumatic aortic (valve) stenosis; I71.2 Thoracic aortic aneurysm, without rupture; D64.9 Anemia, unspecified; E78.5 Hyperlipidemia, unspecified; R91.8 Other nonspecific abnormal finding of lung field; I10 Essential (primary) hypertension
CPT/HCPCS: 36415; 71045; 71275; 80048; 80053; 80061; 81003; 83605; 83735; 83880; 84443; 84484; 85025; 85380; 85610; 85730; 93005; 93306; 93458; 93970; 96366; 96372; 96376; 99285; A9270; C1769; C1887; C1894; G0378; J1160; J1644; J1650; J2250; J3010; J7040; Q9967